=== PATIENT | female | born 1985 | race Caucasian/White ===

== ENCOUNTER 2017-04-18 00:54 | Inpatient (IN) | payer OTHER ==
[2017-04-18 01:11] VITALS: BMI 34.0
--- NOTE | 2017-04-18 02:27 | OBADHP ---
Datetime: 04/18/2017 02:00 Admit Comment, IP Provider: IUP at 39+w declined /desried C/S 39+w; no SROM; no VB; +FM care: CP Dr Johnny JOHNSTONYNH: C/S x 1 PMH: denies PSH: denies PSoH: denies smoking/ETOH/Drugs Allergy: PCN/Sulfa A: IUP at 39w previous C/S x 1/declined Anterior placenta PLAN: admit to L_D vs C/S disucssed in detail...she had cancelled earlier date for elecetive delivery. IVF/Abx/ labs Informed consent obtained Pelvic Type - PN: Adequate Extremities - PN: Normal Abdomen - PN: Normal Back - PN: Normal Breast - PN: Not Done Lungs - PN: Normal Heart - PN: Normal Thyroid - PN: Normal Neurologic - PN: Normal HEENT - PN: Normal General - PN: Normal Presentation-Admit: Vertex FHR - Baseline A Provider: 130 Comments, ACOG Physical Exam: ROS: general: no fatigue/no weakness HEENT: no YAN; no visual dist CV: No CP; No palpitations Resp: no SOB; no cough GI: No N/V/D : no F/U/D MS: no joint pain IP Hx Assessment: The History has been Reviewed and is Current Vital Signs Provider: Reviewed; Within Normal Limits IP Chief Complaint: Scheduled Section NICHD Variability Prov Fetus A: Moderate 6-25bpm NICHD Accel Fetus A IP Provider: [id number] FHR Category Provider Fetus A: Category I NICHD Decel Fetus A IP Provider: None Genitourinary Exam: Normal DTRs - PN: Normal IP Adm Impression: Term, intrauterine ; No Active Labor IP Admit Plan: Admit to unit; Initiate Section protocol
[2017-04-18 03:24] LABS: BASO % 0.3 % (0.0-2.0); EOS # 0.3 K/uL (0.0-0.7); EOS % 2.9 % (0.0-4.0); HEMATOCRIT 30.8 % (34.0-47.0); LYMPH # 2.5 K/uL (1.0-4.3); LYMPH % 23.3 % (20.0-40.0); MEAN CELL VOLUME 76.8 fl (81.0-99.0); MEAN CORPUSCULAR HEMOGLOBIN 25.1 pg (27.0-31.0); MEAN CORPUSCULAR HGB CONC 32.7 g/dL (33.0-37.0); MEAN PLATELET VOLUME 8.5 fl (7.2-11.7); MONO # 0.7 K/uL (0.0-0.8); MONO % 6.9 % (0.0-10.0); NEUT # 7.1 K/uL (1.8-7.0); NEUT % 66.6 % (50.0-75.0); NRBC % 0.1 % (0.0-0.0); RED CELL DISTRIBUTION WIDTH 17.2 % (11.5-14.5); WHITE BLOOD COUNT 10.6 K/uL (4.8-10.8)
[2017-04-18 04:05] VITALS: BP 103/52; PULSE 80; RESP 16; TEMP 98.9
[2017-04-18] MEDS: Lactated Ringer's 1,000 ML IV SCH ×2 (04:36→05:59)
[2017-04-18] MEDS ORDERED: Oxytocin 30 units/LR 500ML 30 U/500 ML BAG IV ONE (05:51)
[2017-04-18] MEDS ORDERED: ePHEDrine 50 mg/ml Inj ONE (06:02)
[2017-04-18] MEDS ORDERED: Phenylephrine 10 mg/ml Inj ONE (06:02)
[2017-04-18] MEDS ORDERED: Morphine 1 mg/ml preservative-free Inj(Duramorph) ONE (06:04)
[2017-04-18] MEDS ORDERED: DiphenhydrAMINE 50 mg/ml Inj IVP PRN ×2 (07:01→15:23)
[2017-04-18] MEDS ORDERED: Oxycodone/Acetaminophen 5/325 mg Tab PO PRN (07:15)
--- NOTE | 2017-04-18 09:14 | OBDS ---
DELIVERY PERSONNEL Delivery Doctor: Louis Turner DO Scrub Nurse: Radha Markham OBT Ending Machine Operator: Cheryl Matias RN Anesthesiologist: Nisreen Theodore MD MATERNAL INFORMATION Delivery Anesthesia: Spinal Medications in Delivery: PITOCIN 30 UNITS IN 500 ML/HR Estimated Blood Loss (ml): 800 Placenta Cultured: No Maternal Complications: None Provider Comments: Surgeon Dr Turner Asschiqui Murillo Anesth Dr Arben Phipps Spinal PreOp Dx IUP at 39w previous C/S x 1 decliend Psot Op Dx same Procedure: Repeat LTCS via previous scar Findings: live male infant delivered form ceph pres Kiwi one pop off) One losse nuchal cord placenta delivered intact manually Ovaries and tubes WNL She tolerated well. All equipment sponges and needles accounted for EBL 800cc LABOR SUMMARY EDC: 04/19/2017 00:00 No. Babies in Womb: 1 Attempted: No Labor Anesthesia: None LABOR INFORMATION Reason for Induction: Not Applicable Oxytocin: N/A Group B Beta Strep: Negative Antibiotics # of Doses: 1 Antibiotics Time of Last Dose: 0600 Steroids Given: None Reason Steroids Not Administered: Not Applicable MEMBRANES Membranes Rupture Method: Artificial Rupture of Membranes: 04/18/2017 06:41 Length of Rupture (hrs): 0.02 Amniotic Fluid Color: Clear Amniotic Fluid Amount: Moderate Amniotic Fluid Odor: Normal STAGES OF LABOR Stage 3 hrs: 0 Stage 3 min: 0 CSECTION DELIVERY Primary Indication: Repeat Elective Other Primary Indication: decelined CSection Urgency: Elective CSection Incidence: Repeat Labor: No Labor Elective: Elective CSection Incision: Lower Uterine Transverse Uterine Closure: Double-layer closure BABY A INFORMATION Delivery Date/Time: 04/18/2017 06:42 Method of Delivery: Born in Route : No : N/A Forceps: N/A Vacuum Extraction: N/A Shoulder Dystocia : No ASSISTED DELIVERY BABY A Vacuum Number of Pulls: 1 Vacuum Number of PopOffs: 1 Total Time Vacuum Applied: <5 SECONDS SHOULDER DYSTOCIA BABY A Infant Delivery Date/Time: 04/18/2017 06:42 PRESENTATION/POSITION BABY A Presentation: Cephalic Cephalic Presentation: Vertex Breech Presentation: N/A PLACENTA INFORMATION BABY A Placenta Delivery Time : 04/18/2017 06:42 Placenta Method of Delivery: Manual Removal Placenta Status: Delivered SCORES BABY A Heart Rate 1 min: >100 bpm Resp Effort 1 min: Good Cry Reflex Irritability 1 min: Cough or Sneeze or Pulls Away Muscle Tone 1 min: Active Motion Color 1 min: Body [place], Extremities Blue Resuscitation Effort 1 min: Tactile Stimulation SCORE 1 MIN: 9 Heart Rate 5 min: >100 bpm Resp Effort 5 min: Good Cry Reflex Irritability 5 min: Cough or Sneeze or Pulls Away Muscle Tone 5 min: Active Motion Color 5 min: Body [place], Extremities Blue Resuscitation Effort 5 min: N/A SCORE 5 MIN: 9 INFANT INFORMATION BABY A Gestational Age at Delivery: 39.6 Gestational Status: Term Infant Outcome : Liveborn Condition : Stable Infant Sex: Male IDENTIFICATION/MEDS BABY A ID Band Number: [id number] ID Band Location: Left Leg; Left Arm WEIGHT/LENGTH BABY A Birthweight (gms): 3780 Weight (lb): 8 Infant Weight (oz): 5 CORD INFORMATION BABY A No. Cord Vessels: 3 Nuchal Cord : Around Neck x1, Loose Infant Suction: Mouth; Nose ASSESSMENT BABY A Infant Complications: None Physical Findings at Delivery: Within Normal Limits Infant Respirations: Appears Normal Cultured [employer] Maker/ALS Called : No Infant Care By: Transferred To: Remains with Mother
[2017-04-18] MEDS ORDERED: Simethicone 80 mg Chewtab PO SCH (10:00)
[2017-04-18] MEDS: Simethicone 80 mg Chewtab PO SCH ×2 (17:55→21:13)
[2017-04-19] MEDS: Lactated Ringer's 1,000 ML IV SCH ×2 (02:10→08:33)
[2017-04-19] MEDS: Simethicone 80 mg Chewtab PO SCH ×5 (03:32→21:53)
[2017-04-19 07:27] LABS: HEMATOCRIT 26.6 % (34.0-47.0); MEAN CELL VOLUME 77.9 fl (81.0-99.0); MEAN CORPUSCULAR HEMOGLOBIN 24.8 pg (27.0-31.0); MEAN CORPUSCULAR HGB CONC 31.9 g/dL (33.0-37.0); RED CELL DISTRIBUTION WIDTH 17.3 % (11.5-14.5)
[2017-04-19] MEDS: Oxycodone/Acetaminophen 5/325 mg Tab PO PRN ×2 (09:00→18:43)
--- NOTE | 2017-04-19 15:08 | OBPPN ---
Datetime: 04/19/2017 15:05 PP Pain Prov: Within normal limits PP Nausea Prov: Denies PP Flatus Prov: Yes PP BM Prov: No PP Breasts Prov: Normal PP Heart Prov: Normal PP Lungs Prov: Normal PP Abdomen/Uterus Prov: Normal PP Lochia Prov: Normal PP Vulva/Perineum Prov: Normal PP CVA Tenderness Prov: Normal PP Extremities Prov: Normal PP C/S Incision Prov: Normal PP Progress Prov: Normal PP Impression Prov: Normal progression PP Plan Prov: Continue present management PP Progress Note Prov: She feels fine this afternoon. Some gas pains H/H 06/25 A; S/P C/S day 1 - anemia asymptomatic PLN: continue postop care Vital Signs Provider PP: Reviewed Vital Signs Provider Details PP: Pulse 102-105
[2017-04-20] MEDS: Simethicone 80 mg Chewtab PO SCH ×2 (08:59→22:56)
--- NOTE | 2017-04-20 09:55 | OBPPN ---
Datetime: 04/20/2017 09:53 PP Pain Prov: Within normal limits PP Nausea Prov: Denies PP Flatus Prov: Yes PP Breasts Prov: Not Done PP Heart Prov: Normal PP Lungs Prov: Normal PP Abdomen/Uterus Prov: Normal PP Lochia Prov: Not Done PP Vulva/Perineum Prov: Not Done PP CVA Tenderness Prov: Normal PP Extremities Prov: Normal PP C/S Incision Prov: Normal PP Impression Prov: Normal progression PP Plan Prov: Continue present management PP Progress Note Prov: Patient doing well ambulating sitting in chair tolerating diet reports minima l lochia pain well-controlled Vital signs stable afebrile Uterus firm below the umbilicus Incision clean dry and intact Extremities no Homans Postoperative day #2 Encourage ambulation, regular diet Motrin and Percocet as needed Vital Signs Provider PP: Reviewed
--- NOTE | 2017-04-20 17:42 | OP ---
PROCEDURE DATE: 04/18/2017 PREOPERATIVE DIAGNOSES: 1. Intrauterine at 39+ weeks' gestation. 2. Previous section x 1, declining vaginal after section. POSTOPERATIVE DIAGNOSES: 1. Intrauterine at 39+ weeks' gestation. 2. Previous section x 1, declining vaginal after section. PROCEDURE: Repeat low transverse section via previous surgical scar. SURGICAL FINDINGS: Live male was delivered from cephalic presentation. Kiwi was used 1 time with 1 popoff. One loose nuchal cord noted. Placenta was delivered intact manually. Ovaries and tu bes visually appeared to be within normal limits. She tolerated the procedure well and was transferr ed to the recovery room in stable condition. All equipment, sponges, and needles accounted for. ESTIMATED BLOOD LOSS: 800 mL. SURGEON: Roman Turner DO. ISSUER: Dr. Darinel Murillo. (Dr. Darinel Murillo is a board certified [employer] physician whose presenc e was vital and necessary. There were no residents available. He was present from the start of the procedure to skin closure.) ANESTHESIOLOGIST: Dr. Sanabria. ANESTHESIA: Spinal. OPERATIVE FINDINGS: The patient was brought to the operating room. After successful spinal anesthes ia by Dr. Sanabria, she was placed in a supine position. A urinary catheter was placed and draining beryl ar urine. Compression boots were placed on both lower extremities. Thereafter, he was then draped a nd prepped in the usual sterile manner. Once adequate anesthesia was obtained, an incision was made on the skin using a scalpel. This previous surgical scar was removed. Incision was then taken down to underlying fascia using electrocautery and was taken down until the fascia was identified, nicked in the midline, and then incision was then extended bilaterally using electrocautery. Inferior aspec t of the fascia was grasped using 2 Shae clamps, tented up, and the rectus muscle was both bluntly and sharply dissected using electrocautery. The same was done with the superior aspect of the fascia . In the midline superiorly, the rectus muscle was grasped using 2 Allis clamps, tented up, and usin g a scalpel in the midline rectus muscle was incised until peritoneum was identified. Upon identifyi ng the peritoneum, this was tented up using 2 Claritza clamps and then incised using Metzenbaum scissors . The incision was then extended superiorly and inferiorly with direct visualization of bladder and intestines. Bladder blade was then inserted. A bladder flap was created on the uterus by incising t he peritoneum and then extending it bilaterally above the bladder line. A bladder flap was created. Bladder blade was then inserted behind the bladder flap. A low transverse incision was made using a scalpel. Upon entering the uterus, incision was then extended bilaterally using bandage scissors. Rupture of membranes was performed using forceps with teeth. Clear amniotic fluid was noted. Attemp t was made to deliver the manually. There was some difficulty and incision was extended using bandage scissors. Kiwi was applied 1 time, but it popped off, noting that the peritoneum's tissue w as underneath, but we were able to deliver the infant without using the Kiwi a second time. w as bulb suctioned nasopharyngeally. Cord was clamped and cut, infant was handed to maintainer central office in a ttendance. was crying spontaneously. Cord bloods were obtained. Placenta was delivered inta ct manually. Uterus was then exteriorized, cleared of debris and clots. Lower uterine aspect was id entified and grasped using clamps. An 0 Vicryl suture was used to close the first layer of the uteru s in interlocking fashion. Second layer of the uterus was closed using 0 Vicryl suture imbricating t he first layer. Hemostasis was assured. Ovaries and tubes appeared to be within normal limits gross ly. Posterior cul-de-sac was noted to be cleared of debris and clots. Uterus was placed back into p eritoneal cavity. Copious irrigation was performed. Lower uterine aspect was noted to have good hem ostasis. An 0 Vicryl suture was used to approximate the peritoneal layer in a running fashion and re ctus muscle was approximated x 2 using 0 Vicryl suture. Hemostasis assured. An 0 Vicryl suture was used to approximate the fascial layer in a running fashion. Irrigation was performed. Hemostasis wa s assured in the subcuticular layer using electrocautery. A 2-0 plain suture was used to approximate the subcuticular layer, 3-0 Vicryl suture was used to approximate the skin. Dermabond, Steri-Strips , and a pressure bandage were applied. She tolerated the procedure well and was transferred to the recovery room in stable condition. Roman Turner DO cc: 135 TT: 04/20/2017 17:42:00 dn
[2017-04-21] MEDS: Simethicone 80 mg Chewtab PO SCH ×2 (05:06→09:15)
--- NOTE | 2017-04-21 09:23 | OBPPN ---
Datetime: 04/21/2017 09:11 PP Pain Prov: Within normal limits PP Nausea Prov: Denies PP Flatus Prov: Yes PP BM Prov: Yes PP Abdomen/Uterus Prov: Normal PP Lochia Prov: Normal PP Extremities Prov: Normal PP C/S Incision Prov: Normal PP Progress Prov: Normal PP Comments Phys Exam Prov: Incision intact w/ steri strips PP Impression Prov: Normal progression PP Plan Prov: Discharge PP Progress Note Prov: POD 3 s/p Repeat c/s, doing well, breast and bottle feeding Rx'd percocet, motrin and ferrous sulfate given Pt may go home today Vital Signs Provider PP: Reviewed
--- NOTE | 2017-04-21 11:29 | OBDCSUM ---
Datetime: 04/21/2017 11:12 Discharged to, Provider: Home Follow up at, Provider: OB Disch Instr Activity: Normal activity; May Shower Disch Instr Diet: Regular Discharge Instructions, Provider: Routine instructions given Discharge Diagnosis, Provider: Term Delivered Discharge Time: 04/21/2017 11:12 Follow up in weeks, Provider: 1 week post op, 6 weeks Disch Referrals: None Contraception discussed, Prov: No Disch Activity Restrictions: No exercising; No lifting; No driving; Minimize stair-climbing; No sexu al activity; Nothing in vagina - [place], tampons, douche
== END 2017-04-21 13:00 | disposition home or self-care (01) | DRG 766 ==
LOC: H.EROB2 00:54 → H.L&D 01:39 → H.OB/GYN 10:21
PROVIDERS: ADMIT Obstetrics & Gynecology; ATTEND Obstetrics & Gynecology
PROC: 10D00Z1 Extraction of Products of Conception, Low, Open Approach (ICD-10-PCS; principal; 2017-04-18)
PROC: 4A1HXCZ Monitoring of Products of Conception, Cardiac Rate, External Approach (ICD-10-PCS; 2017-04-18)
DX: O34.211 Maternal care for low transverse scar from previous cesarean delivery (principal); O90.81 Anemia of the puerperium; O69.81X0 Labor and delivery complicated by cord around neck, without compression, not applicable or unspecified; Z3A.39 39 weeks gestation of pregnancy; Z37.0 Single live birth; Z88.0 Allergy status to penicillin; Z88.2 Allergy status to sulfonamides